=== PATIENT | female | born 1940 | race Caucasian/White ===

== ENCOUNTER 2017-05-07 09:15 | Inpatient (IN) ==
--- NOTE | 2017-05-06 21:53 | Discharge Summary ---
<Miracle Manjarrez - Last Filed: 05/06/17 21:51> Date of Encounter: 05/06/17 - Discharge Diagnosis (1) Left rotator cuff tear arthropathy Priority: Primary Status: Acute (2) Status post total replacement of left shoulder Priority: Primary Status: Acute (3) CHRIS on CPAP Priority: Secondary Status: Chronic (4) HTN (hypertension) Priority: Secondary Status: Chronic Qualifiers: Hypertension type: essential hypertension Qualified Code(s): I10 - Essential (primary) hypertension (5) HLD (hyperlipidemia) Priority: Secondary Status: Chronic Qualifiers: Hyperlipidemia type: pure hypercholesterolemia Qualified Code(s): E78.00 - Pure hypercholesterolemia, unspecified; E78.0 - Pure hypercholesterolemia - Discharge Medications Home Medications: Aspirin [Lo-Dose Aspirin EC] 81 mg PO DAILY 05/07/17 [History] Atenolol [Tenormin] 25 mg PO DAILY 05/07/17 [History] Atorvastatin Calcium [Lipitor] 80 mg PO DAILY 05/07/17 [History] Calcium Acetate 1,000 mg PO DAILY 05/07/17 [History] Cholecalciferol (D-3) [Vitamin D] 1,000 unit PO DAILY 05/07/17 [History] Lisinopril [Zestril] 40 mg PO DAILY 05/07/17 [History] Multivitamin [Multi-Day Vitamins] 1 each PO DAILY 05/07/17 [History] Gheens-3 Fatty Acids [Fish Oil] 1,000 mg PO DAILY 05/07/17 [History] Allergies/Adverse Reactions: Allergies iodine Allergy (Severe, Verified 05/03/17 09:25) Hives topical iodine Primary care physician: Modesto Cabrera MD - Patient Status Disposition: Home Health Service Condition: Good - Discharge Instructions Follow Up With: Modesto Cabrera MD [Primary Care Provider] - - Hospital Course Hospital course: Ms. Bassett is a 76 year old female - Time Spent with Patient Total time spent providing and/or coordinating discharge services: <Dion Campbell - Last Filed: 05/08/17 06:55> Date of Encounter: 05/08/17 Time of Encounter: 06:53 - Discharge Diagnosis (1) CLL (chronic lymphocytic leukemia) Priority: Secondary Status: Chronic (2) Left rotator cuff tear arthropathy Priority: Primary Status: Chronic (3) CHRIS on CPAP Priority: Secondary Status: Chronic (4) HTN (hypertension) Priority: Secondary Status: Chronic Qualifiers: Hypertension type: essential hypertension Qualified Code(s): I10 - Essential (primary) hypertension (5) HLD (hyperlipidemia) Priority: Secondary Status: Chronic Qualifiers: Hyperlipidemia type: pure hypercholesterolemia Qualified Code(s): E78.00 - Pure hypercholesterolemia, unspecified; E78.0 - Pure hypercholesterolemia (6) Status post total replacement of left shoulder Priority: Primary Status: Acute (7) Lipoma of left shoulder Priority: Primary Status: Chronic Primary care physician: Modesto Cabrera MD - Patient Status Functional capacity at discharge: independent ambulation Overall status at discharge: patient is progressing back to baseline - Hospital Course Hospital course: Ms. Bassett is a 76 year old female Status post left shoulder lipoma excision, total shoulder replacement. The patient had an uneventful postoperative course. They received antibiotics and physical therapy and were discharged in stable condition. There will follow -up in the office in 2 weeks. - Time Spent with Patient Total time spent providing and/or coordinating discharge services:
--- NOTE | 2017-05-06 22:12 | Physician Discharge Referral ---
Home Health/Hosp Referral Info Transfer to: Home Health Provider in Charge Post Discharge: PCP - Diagnosis (1) Left rotator cuff tear arthropathy Priority: Primary Status: Acute (2) Status post total replacement of left shoulder Priority: Primary Status: Acute (3) CHRIS on CPAP Priority: Secondary Status: Chronic (4) HTN (hypertension) Priority: Secondary Status: Chronic (5) HLD (hyperlipidemia) Priority: Secondary Status: Chronic - Respiratory Orders None Smoking Cessation: Smoking cessation has been advised. For more information, call the [place] Tobacco Quit Line at 4-402-COOZ-NOW. - Dressing/Wound Care Type of Dressing/Treatments w/Frequency: Opsite dressing, leave intact until first post-operative visit. If dressing becomes >50% saturated, contact office, remove dressing and place appropriate dressing in its place. Do not allow for dressing to get wet. Shoulder Precautions x 6 weeks. Apply cold therapy wrap 3-6x/day for 20 minutes at a time. Encourage ambulation throughout the day. Use Incentive spirometer 10x/hour. Elevate affected extremity above heart as tolerated. NWB to affected upper extremity x 6 weeks. Will remove brace at first post-operative appointment. OK to remove during PT/ OT and Home exercises. - Diet/Nutrition Diet/Nutrition Orders: Regular - Activity Activity Orders: Up ad triston, Ambulate - Services Needed Following services are medically necessary services: Nursing, Physical Therapy, Occupational Therapy - Transfer Medications Prescriptions: OxyCODONE Immed Rel [Roxicodone 5 MG] 5 - 10 mg PO Q6HR PRN #40 tablet PRN Reason: Pain Home Medications: Atenolol [Tenormin] 25 mg PO DAILY 06/03/15 [History] Lisinopril [Zestril] 40 mg PO DAILY 06/03/15 [History] Atorvastatin Calcium [Lipitor] 80 mg PO DAILY 12/03/15 [History] Aspirin [Lo-Dose Aspirin EC] 81 mg PO DAILY 12/01/16 [History] OxyCODONE Immed Rel [Roxicodone 5 MG] 5 - 10 mg PO Q6HR PRN #40 tablet 05/06/17 [Rx] Allergies/Adverse Reactions: Allergies iodine Allergy (Severe, Verified 05/03/17 09:25) Hives topical iodine Certification: Further, I certify that my clinical findings support that this patient is homebound (i.e. absences from home require considerable and taxing effort and are for medical reasons or shinto services or infrequently or short duration when for other reasons) because: Homebound Reason: Post-surgery restriction and or conditions limit ability to leave home Attestation: My signature below is to certify that this patient is under my care and that I, or nurse practitioner, or a physician's assistant kitchen manager working with me, has a face-to -face encounter with this patient.
[2017-05-07] MEDS ORDERED: Famotidine 20 MG/2 ML VIAL IVP ONE (09:33)
[2017-05-07] MEDS ORDERED: Gabapentin 300 MG CAPSULE PO ONE (09:34)
[2017-05-07] MEDS ORDERED: Ringers Solution, Lactated 1,000 ML IVC SCH ×2 (09:45→13:49)
--- NOTE | 2017-05-07 09:46 | History & Physical Report ---
Date of Encounter: 05/07/17 Time of Encounter: 09:45 24 Hour HP Update - Instructions Instructions: If the History and Physical is less than 30 days old and was completed prior to A.M. admission and or procedure and has NOT been updated on calendar day of procedure please complete this update prior to performing procedure. - Update Patient reports changes in Medical Condition: No Changes in examination, assessment, or condition: No Changes in Medication: No Preop tests/diagnostics Reviewed: Yes Surgery Remains Indicated: Yes Consent for Planned Operative Procedure(s) Verified: Yes - Pre-Operative Checklist Preoperative Checklist Indicated: No Prophylactic Antibiotic Ordered: Yes Is VTE Prophylaxis Indicated?: Yes
--- NOTE | 2017-05-07 10:04 | Anesthesia Evaluation PreOp ---
Date of Encounter: 05/07/17 Time of Encounter: 10:00 - Past History Planned Operation: Left Total Replacement Shoulder Cardiac History: HTN, Hyperlipidemia Pulmonary History: CHRIS Dx (Uses CPAP) HAT FINISHER History: Denies Any Significant HX Other Medical History: Denies Any Significant HX Anesthesia History: No Prior Anesthetic Complications : No Alcohol Use: none Drug use: none Medications and Allergies Atenolol [Tenormin] 25 mg PO DAILY 06/03/15 [History] Lisinopril [Zestril] 40 mg PO DAILY 06/03/15 [History] Atorvastatin Calcium [Lipitor] 80 mg PO DAILY 12/03/15 [History] Aspirin [Lo-Dose Aspirin EC] 81 mg PO DAILY 12/01/16 [History] OxyCODONE Immed Rel [Roxicodone 5 MG] 5 - 10 mg PO Q6HR PRN #40 tablet 05/06/17 [Rx] Allergies iodine Allergy (Severe, Verified 05/03/17 09:25) Hives topical iodine - Meds/Allergy Pre-op Review Medications Reviewed: Yes Allergies Reviewed: Yes Beta Blockers on Current Med List: No Anesthesia Results - Labs Laboratory Tests 05/03/17 05/03/17 09:40 09:40 Hgb 12.7 Hct 37.7 Plt Count 216 Sodium 136 Potassium 4.2 BUN 25 H Creatinine 0.81 - Imaging EKG: report reviewed (SB) Additional studies: ECHO 2017 LVEF 60% Anesthesia Exam O2 Sat Height 1.45 m Height 1.45 m Weight 60.781 kg Weight 60.781 kg O2 Sat by Pulse Oximetry 95 Vital Signs Temp Pulse Resp BP Pulse Ox 99.1 F 50 18 117/67 95 05/07/17 09:38 05/07/17 09:38 05/07/17 09:38 05/07/17 09:38 05/07/17 09:38 Height: 4'9 Weight: 134 lbs NPO (# of Hours): MN Pain Scale: 0 - HEENT Pupil (Motor): Pupils equal, EOMI Mallampati: III Teeth: Edentulous Denture Type: Upper: Complete Oral Opening: Less than or equal to 3 - HAT FINISHER LOC: Oriented HAT FINISHER Motor: Normal RUE, Normal LUE, Normal RLE, Normal LLE, Normal Face HAT FINISHER Sensory: Normal: RUE, LUE, RLE, LLE, Face - Cardiac Rhythm: Regular Murmur: None JVD: No Carotid Bruit: No - Pulmonary Breath Sounds: bilateral Clear Respiratory Effort: Symmetrical Anesthesia Assess/Plan ASA Score: 3 (HTN CHRIS) Modified [place] Scale for Level of Consciousness: Cooperative, oriented, and tranquil Anesthetic Plan: General, Regional Monitoring Plan: Standard Monitors Recovery Plan: PACU (Discussed GA and RA, agrees to proceed)
[2017-05-07] MEDS ORDERED: CeFAZolin Pre 2,000 MG/100 ML 2,000 MG/100 ML BAG IVPB ONE (10:17)
[2017-05-07] MEDS ORDERED: Tetracaine/PF 20 MG/2 ML AMPUL ONE (10:48)
[2017-05-07] MEDS ORDERED: ROPIVACAINE HCL/PF 0.5% 30 ML VIAL ONE (10:48)
[2017-05-07] MEDS ORDERED: *HR* HYDROmorphone (PF) 1 MG/ML SYRINGE IVP PRN ×2 (11:04→13:49)
[2017-05-07] MEDS ORDERED: Ondansetron 4 MG/2 ML VIAL IVP ONE (11:04)
[2017-05-07] MEDS ORDERED: *HR* Labetalol 20 MG/4 ML SYRINGE IVP PRN (11:04)
--- NOTE | 2017-05-07 11:09 | Anesthesia Procedures ---
Date of Encounter: 05/07/17 Time of Encounter: 10:00 Procedures: Anesthesia - Nerve Block Procedure Date: 05/07/17 Time: 11:00 Pre-op Diagnosis: Left Shoulder OA Arthropathy Surgical Procedure: Left Total Shoulder Replacement Checklist: Correct Patient Identifier Correct side: Left Blood Thinner: No Monitor Applied: EKG, BP, Pulse Oximetry Supplemental Oxygen via Nasal Cannula (L/min): 2 Sedation: Fentanyl (mcg): 50 Indication: Post Op Analgesia Pre-op Neuro Deficits: No Block Type: Supraclavicular Catheter placed: No Depth at skin (cm): 2 Sterile Technique: Yes Ultrasound used: Yes Anatomy identified: Yes Visual spread of Local: Yes Neuro Stimulation: No Blood on Needle Aspiration: No Smooth Injection of Local: Yes Pain with Injection of Local: No Prep: Chlorhexadine Needle: 22 x 50 mm Stimuplex Local: Tetracaine (20), Ropivacaine (0.5%) Volume (cc): 30 Number of Attempts: 1 Complications: None/effective block Vitals: Vital Signs/O2 Sat/Glucose, Most Current Temp Pulse Resp BP Pulse Ox 05/07/17 11:02 47 14 152/72 94 05/07/17 10:50 46 16 150/78 97 05/07/17 09:38 99.1 F 50 18 117/67 95
[2017-05-07] MEDS ORDERED: Dexamethasone 4 MG/ML VIAL ONE (11:40)
[2017-05-07] MEDS ORDERED: Ondansetron 4 MG/2 ML VIAL ONE (11:40)
[2017-05-07] MEDS ORDERED: Lidocaine -MPF 4% 5 ML AMPUL ONE (11:40)
[2017-05-07] MEDS ORDERED: Lidocaine -MPF 2% 2 ML VIAL ONE (11:40)
[2017-05-07] MEDS ORDERED: *HR* FentaNYL (PF) 100 MCG/2 ML VIAL ONE (11:40)
[2017-05-07] MEDS ORDERED: *HR* Midazolam HCl 2 MG/2 ML VIAL ONE (11:40)
[2017-05-07] MEDS ORDERED: *HR* Propofol 200 MG/20 ML VIAL IVP ONE (11:40)
--- NOTE | 2017-05-07 12:28 | Orthopedic Operative Note ---
Date of procedure: 05/07/17 Pre-op diagnosis: Left shoulder lipoma, cuff tear arthropathy Post-op diagnosis: same Procedure: Procedure: Left Total Shoulder Replacment Reverse, lipoma excision, biceps tenodesis Estimated blood loss: 100 cc Hardware: Metal and polyethylene replacement: Arthrex small glenoid baseplate, 2 4.5 screws. 1 6.5 screw, 36+4 glenosphere, 5 humeral stem, poly insert 6 Exam Under anesthesia: Full motion of instability Procedural Notes: Large intramuscular lipoma sent off for specimen, irreparable tear supraspinatus tendon Operative procedure: The patient was brought to the operating room and placed on the operating room table. After general anesthesia was administered the operative shoulder was examined. Findings were noted. The patient was placed in the modified beachchair position. All pressure points were padded appropriately. And the head was stabilized in the neutral position. The operative extremity was prepped and draped in the sterile surgical fashion. The patient received IV antibiotics prior to skin incision. A standard deltopectoral approach was made to the operative shoulder. Incision was made to the skin and subcutaneous tissue,hemo stasis was obtained with Bovie cautery. Using careful blunt dissection the cephalic vein was identified and mobilized medially. The deltopectoral interval was developed patient had a large intramuscular lipoma which was excised using careful blunt dissection. The deltopectoral interval was then fully developed, clavipectoral fascia was incised. The subscap was released off the lesser tuberosity and tagged with #2 FiberWire suture subscap was irreparable. The humerus was dislocated patient noted to have irreparable tear supraspinatus tendon, and the humeral cut was made along the anatomic neck. Anterior and posterior Bankart retractors were placed to expose the glenoid. The glenoid guide was seated and the centering hole was made. It was reamed with the appropriate reamer. The small baseplate was seated and secured with (2) 4.5 screws and one 6.5 screw. The baseplate was irrigated and dried and the 6+4 Glenosphere was seated and secured with the Friedman taper. The Friedman taper was tested and found to be secure the humerus was redislocated and prepared with the diaphyseal reamers, followed by a broaching process up to the appropriate size 5 in the patient's anatomic version. The metaphyseal reamer was then utilized. Trial reduction found the shoulder to be relocatable. Trial components were removed and drill holes were placed in the lesser tuberosity. They were filled with #5 FiberWire suture incorporating the biceps tendon for a biceps tenodesis.The appropriate 5 stem was impacted in place in the patient's anatomic version. Trial reduction found the shoulder to be relocatable and stable with the appropriate 6 Trial component was removed and the real implant was seated and secured the shoulder was reduced. The shoulder had excellent motion and excellent stability and no evidence of dislocation. The deep tissue was irrigated with pulse irrigation. The PA close the shoulder The deltopectoral interval was closed with a running #1 PDS suture, subcutaneous tissue was irrigated and closed with 0 PDS suture, the skin was closed with myranda. The patient was placed in a sterile dressing, abduction brace and extubated. The patient was then transferred to the recovery room in stable condition. Anesthesia: CRISTINE Surgeon: Dion Campbell Stave Block Splitter: Ann Funes Condition: stable Disposition: PACU
[2017-05-07 13:08] LABS: Hematocrit 36.3 % (35.3-44.9); Hemoglobin 11.9 g/dL (11.5-15.4)
--- NOTE | 2017-05-07 13:28 | Anesthesia Evaluation Post Op ---
Date of Encounter: 05/07/17 Time of Encounter: 13:15 - Vital Signs Vital Signs: Vital Signs/O2 Sat/Glucose, Most Current Temp Pulse Resp BP Pulse Ox 05/07/17 13:15 97.8 F 59 16 154/83 96 05/07/17 13:05 58 16 158/88 95 05/07/17 12:55 57 16 152/85 94 05/07/17 12:50 59 18 165/78 94 05/07/17 12:45 97.2 F L 61 20 165/75 97 05/07/17 11:02 47 14 152/72 94 05/07/17 10:50 46 16 150/78 97 05/07/17 09:38 99.1 F 50 18 117/67 95 - Lungs Lungs: Clear Ascult./Percussion - Airway Airway: Non-obstructed - Cardiovascular Regular Rate - Mental Status Mental Status: Alert & Oriented, Answers Appropriately - Pain Pain Scale: 0 - Nausea Vomiting Nausea Vomiting: Not Present - Hydration Hydration: Ice chips - Discharge PostOp Status: Transfer Patient to floor
[2017-05-07] MEDS ORDERED: Sennosides 8.6 MG TABLET PO PRN (13:49)
[2017-05-07] MEDS ORDERED: MOM Conc 10 ML UD.LIQ PO PRN (13:49)
[2017-05-07] MEDS ORDERED: *HR* OxyCODONE Immed Rel 5 MG TABLET PO PRN ×2 (13:49)
[2017-05-07] MEDS ORDERED: Ondansetron 4 MG/2 ML VIAL IVP PRN (13:49)
[2017-05-07] MEDS ORDERED: Naloxone 0.4 MG/ML INJ IVP PRN (13:49)
[2017-05-07] MEDS: ceFAZolin 2,000 MG in D5% in Water 100 ML IVPB SCH ×2 (16:05→23:45)
[2017-05-07] MEDS: *HR* Enoxaparin 30 MG/0.3 ML SYRINGE SQ SCH (16:06)
[2017-05-07] MEDS ORDERED: *HR* Enoxaparin 30 MG/0.3 ML SYRINGE SQ SCH (18:00)
[2017-05-07] MEDS ORDERED: Temazepam 15 MG CAPSULE PO PRN (21:00)
[2017-05-08] MEDS: *HR* Enoxaparin 30 MG/0.3 ML SYRINGE SQ SCH (05:05)
[2017-05-08 05:27] LABS: Hematocrit 37.9 % (35.3-44.9); Hemoglobin 12.2 g/dL (11.5-15.4)
--- NOTE | 2017-05-08 06:55 | Orthopedics Progress Note ---
Date of Encounter: 05/08/17 Time of Encounter: 06:55 - Assessment and Plan (1) CLL (chronic lymphocytic leukemia) Current Visit: No Status: Chronic (2) Left rotator cuff tear arthropathy Current Visit: Yes Status: Chronic (3) CHRIS on CPAP Current Visit: Yes Status: Chronic (4) HTN (hypertension) Current Visit: Yes Status: Chronic Qualifiers: Hypertension type: essential hypertension Qualified Code(s): I10 - Essential (primary) hypertension (5) HLD (hyperlipidemia) Current Visit: Yes Status: Chronic Qualifiers: Hyperlipidemia type: pure hypercholesterolemia Qualified Code(s): E78.00 - Pure hypercholesterolemia, unspecified; E78.0 - Pure hypercholesterolemia (6) Status post total replacement of left shoulder Current Visit: Yes Status: Acute (7) Lipoma of left shoulder Current Visit: Yes Status: Chronic Subjective Interval history: Patient was seen this morning doing well without complaints. Afebrile vital signs stable. Operative extremity: Neurovascularly intact Dressing clean dry and intact Calves nontender Assessment and plan: Continue with postoperative care Hematocrit 37 discharged today Objective Vital signs: Vital Signs Temp Pulse Resp BP Pulse Ox 05/08/17 04:26 98.3 F 55 18 142/70 95 05/08/17 00:18 97.0 F L 51 17 158/79 99 05/07/17 20:31 97.7 F 54 16 126/65 93 05/07/17 17:25 97.5 F L 05/07/17 16:00 97.4 F L 51 15 167/72 97 05/07/17 14:37 95.9 F L 48 14 164/72 94 05/07/17 13:57 95.5 F L 50 12 168/83 92 05/07/17 13:24 94.4 F L 51 14 166/80 93 05/07/17 13:15 97.8 F 59 16 154/83 96 05/07/17 13:05 58 16 158/88 95 05/07/17 12:55 57 16 152/85 94 05/07/17 12:50 59 18 165/78 94 05/07/17 12:45 97.2 F L 61 20 165/75 97 05/07/17 11:02 47 14 152/72 94 05/07/17 10:50 46 16 150/78 97 05/07/17 09:38 99.1 F 50 18 117/67 95 Intake and Output 05/07/17 05/07/17 05/08/17 15:59 23:59 07:59 Intake Total 100 / 100 1500 / 1500 1060 / 1060 Output Total 220 / 220 875 / 875 500 / 500 Balance -120 / -120 625 / 625 560 / 560 Intake: IV Fluids 100 / 100 100 / 100 100 / 100 Ancef Premix 2,000 MG/100 100 / 100 ML 2,000 mg In 100 ml @ 200 mls/hr IVPB PREOP ONE Rx#:[id number] Ancef 2,000 MG In 100 / 100 100 / 100 Dextrose 5% 100 ML @ 200 mls/hr IVPB Q8HR EDOUARD Rx#: [id number] Oral 1400 / 1400 960 / 960 Output: Urine 120 / 120 875 / 875 500 / 500 Estimated Blood Loss 100 / 100 Other: # Voids 1 1 Weight 60.781 kg 65.771 kg Patient Weight 05/08/17 23:59 Weight 65.771 kg - Labs CBC & BMP: 05/08/17 04:38 - VTE Documentation of Mechanical Device: Venous foot pump, device Consult Discharge Plan - Plan Referrals: Modesto Cabrera MD [Primary Care Provider] -
[2017-05-08 11:48] VITALS: BP 145/71
--- NOTE | 2017-05-08 11:54 | Event Note ---
Date of Encounter: 05/08/17 Time of Encounter: 12:36 PCR - POD#1 - LEFT TSR-r Patient seen at bedside. C/o Nausea - Zofran given. Pain control: adequate on Oxycodone Participating in PT. All questions and concerns addressed Educated on use of incentive spirometer, ambulation, and hydration. DID not bring in CPAP, was on Oxygen last night. Patient educated on post-operative restrictions and care. Addressed: Pain control with pain medication D/C plan:. Home with home health 05/08/17; RX for Zofran given. Informed to place start back on CPAP tonight at home. CXR yesterday - atelectasis, no infiltrate noted.
[2017-05-08] MEDS ORDERED: Ondansetron ODT 4 MG TAB.RAPDIS SL ONE (12:41)
== END 2017-05-08 13:40 | disposition home health service (06) | DRG 483 ==
LOC: SAMDAY 09:15 → 3NENU 13:40
PROVIDERS: ADMIT Orthopaedic Surgery; ATTEND Orthopaedic Surgery

== ENCOUNTER 2017-07-24 10:37 | Observation (INO) ==
--- NOTE | 2017-07-24 10:58 | Emergency Department Note ---
START Narrative - START START: 76-year-old female is brought by EMS for evaluation of nausea, vomiting, and dizziness. The patient states the dizziness began 2 weeks ago however became much more severe this morning. She describes one episode of emesis. 4 mg of IV Zofran was administered by EMS. She also complains of substernal chest pressure that began 2 weeks ago as well. She complains of mild epigastric pain but denies any fever, chills, hematochezia, or melena. She denies any shortness of breath, pain with inspiration, or hemoptysis.
[2017-07-24 11:05] LABS: Basophils % 0.4 %; Eosinophils # 0.2 K/mcL (0.0-0.6); Eosinophils % 2.6 %; Hematocrit 39.1 % (35.3-44.9); Hemoglobin 12.9 g/dL (11.5-15.4); Immature Granulocytes % 0.3 % (0-4); Lymphocytes # 3.3 K/mcL (0.6-4.6); Lymphocytes % 36.4 %; Mean Corpuscular Hemoglobin 31.8 pg (28.0-33.3); Mean Corpuscular Volume 96.3 fL (83.0-100.0); Mean Platelet Volume 9.6 fL (9.4-12.4); Monocytes # 0.8 K/mcL (0.0-1.3); Monocytes % 8.3 %; Neutrophils # 4.7 K/mcL (1.6-8.9); Platelet Count 227 K/mcL (140-400); Red Blood Count 4.06 M/mcL (3.82-4.97); Red Cell Distribution Width 12.6 % (11.5-14.5)
[2017-07-24 11:09] LABS: INR 1.1; Prothrombin Time 11.4 Seconds (9.4-12.1)
[2017-07-24 11:12] LABS: Activated Partial Thrombo Time 30.8 Seconds (26.0-36.0)
[2017-07-24 11:20] LABS: Alanine Aminotransferase 26 Units/L (0-55); Albumin 3.8 g/dL (3.5-5.0); Albumin/Globulin Ratio 1.3 (1.1-2.2); Alkaline Phosphatase 85 Units/L (38-126); Aspartate Amino Transferase 23 Units/L (5-34); BUN/Creatinine Ratio 32 (6-26); Bilirubin,Total 0.6 mg/dL (0.2-1.2); Blood Urea Nitrogen 24 mg/dL (7-20); Calcium 9.1 mg/dL (8.6-10.8); Carbon Dioxide 25 mEq/L (19-29); Chloride 106 mEq/L (98-109); Globulin 2.9 g/dL (2.4-3.5); Glucose 100 mg/dL (70-99); Lipase 44 Units/L (8-78); Osmolality,Calculated 290 (280-300); Potassium 4.2 mEq/L (3.5-4.5); Sodium 138 mEq/L (136-145); Total Protein 6.7 g/dL (6.0-8.3); eGFR For African Americans > 60 (> 60); eGFR For Non-African Americans > 60 (> 60)
--- NOTE | 2017-07-24 11:22 | Emergency Department Note ---
Disposition Clinical Impression: Vertigo, Bradycardia Hypertension Qualifiers: Hypertension type: unspecified Qualified Code(s): I10 - Essential (primary) hypertension Disposition: Admitted As Inpatient Condition: Fair Referrals: Modesto Cabrera MD [Primary Care Provider] - Forms: ED Satisfaction Letter Time of Disposition: 12:29 Dizziness HPI - General Chief Complaint: ED Dizziness Stated Complaint: dizziness/n/v Time Seen by Provider: 07/24/17 10:43 Source: patient, family, EMS Limitations: no limitations Nursing Notes Reviewed: Yes Vital Signs Reviewed: Yes - History of Present Illness HPI Narrative: Symptoms started 2 weeks ago. She notes intermittent dizziness described as if the "room is spinning." Her symptoms are positional especially when she stands up or when she bends forward to tie her shoes. She feels nauseated in association with these events. She denies focal weakness. Pt Subjective Complaint: dizziness Onset (ago): week(s) Timing: sudden onset, intermittent Description: "room spinning" History of similar episodes: No History of trauma: No Improves with: remaining still Worsens with: movement, position - Related Data Home Medications Medication Instructions Recorded Confirmed Aspirin [Lo-Dose Aspirin EC] 81 mg PO DAILY 05/07/17 05/07/17 Atenolol [Tenormin] 25 mg PO DAILY 05/07/17 05/07/17 Atorvastatin Calcium [Lipitor] 80 mg PO DAILY 05/07/17 05/07/17 Calcium Acetate 1,000 mg PO DAILY 05/07/17 05/07/17 Cholecalciferol (D-3) [Vitamin D] 1,000 unit PO DAILY 05/07/17 05/07/17 Lisinopril [Zestril] 40 mg PO DAILY 05/07/17 05/07/17 Multivitamin [Multi-Day Vitamins] 1 each PO DAILY 05/07/17 05/07/17 [place]-3 Fatty Acids [Fish Oil] 1,000 mg PO DAILY 05/07/17 05/07/17 Allergies Allergy/AdvReac Type Severity Reaction Status Date / Time iodine Allergy Severe Hives Verified 05/03/17 09:25 All systems ED: reviewed and negative except as stated. Constitutional: Reports: as per HPI Eyes: Reports: as per HPI ENT ED: Reports: as per HPI Cardiovascular: Reports: chest pain Respiratory: Reports: as per HPI Gastrointestinal: Reports: abdominal pain, nausea Genitourinary: Reports: as per HPI Musculoskeletal: Reports: as per HPI Integumentary: Reports: as per HPI Neurological: Reports: other (Dizziness) Psychiatric: Reports: as per HPI Endocrine: Reports: as per HPI Hematological/Lymphatic: Reports: as per HPI Allergic/Immunologic: Reports: as per HPI Past Medical History - Past Medical History Source: patient Medical history: Reports: arthritis, hypertension, other (hypertension) Surgical history: Reports: cataract, hysterectomy, orthopedic, other Psychiatric history: Reports: no psych history - Social History Smoking Status: Never smoker Smokeless Tobacco Status: No Alcohol use: Reports: none Drug use: Reports: none Physical Exam - General Limitations: no limitations General appearance: alert - Head Head exam: atraumatic - Eye Eye exam: Present: normal appearance, PERRL - ENT ENT exam: normal exam - Neck Neck exam: Present: normal inspection, full ROM - Chest Chest inspection: Present: normal inspection, symmetric chest wall rise - Respiratory Respiratory exam: Present: normal lung sounds bilaterally - Cardiovascular Cardiovascular exam: Present: bradycardia - Abdominal Exam Abdominal exam: Present: soft, Non-Tender - Rectal Exam Rectal exam: Present: deferred - Extremities Exam Extremities exam: Present: normal inspection - Neurological Exam Neurological exam: Present: alert, oriented X3, CN II-XII intact - Psychiatric Psychiatric exam: Present: normal affect, normal mood - Skin Skin exam: Present: warm, dry, intact Course Course Narrative: Patient presents with intermittent symptoms of dizziness and nausea. Her history is most consistent with vertigo. She has a normal neurologic exam - Reevaluation(s) Reevaluation #1: Able to ambulate with limited assistance. She states she still feels weak, somewhat dizzy and nauseated. I provided her with the option to be admitted if she wants to discuss it with her significant other and think about it Reevaluation #2: Patient requests admission Vital Signs Temperature 98.6 F 07/24/17 10:39 Pulse Rate 57 07/24/17 10:39 Respiratory Rate 18 07/24/17 10:39 Blood Pressure 174/80 07/24/17 10:39 O2 Sat by Pulse Oximetry 96 07/24/17 10:39 Temperature 98.6 F 07/24/17 10:39 Pulse Rate 47 07/24/17 12:15 Respiratory Rate 18 07/24/17 12:15 Blood Pressure 180/130 07/24/17 12:15 O2 Sat by Pulse Oximetry 97 07/24/17 12:15 Oxygen Delivery Oxygen Delivery Room Air Dizziness - Lab Data Lab results reviewed: Yes I reviewed the patient's lab results. Result diagrams: 07/24/17 10:56 07/24/17 10:56 Lab Results 07/24/17 07/24/17 07/24/17 Range/Units 10:56 10:56 10:56 WBC 9.1 (4.3-11.1) K/mcL RBC 4.06 (3.82-4.97) M/mcL Hgb 12.9 (11.5-15.4) g/dL Hct 39.1 (35.3-44.9) % MCV 96.3 (83.0-100.0) fL MCH 31.8 (28.0-33.3) pg MCHC 33.0 (31.6-35.5) g/dL RDW 12.6 (11.5-14.5) % Plt Count 227 (140-400) K/mcL MPV 9.6 (9.4-12.4) fL Immature Gran % 0.3 (0-4) % Seg Neutrophils % 52.0 % Lymphocytes % 36.4 % Monocytes % 8.3 % Eosinophils % 2.6 % Basophils % 0.4 % Neutrophils # 4.7 (1.6-8.9) K/mcL Lymphocytes # 3.3 (0.6-4.6) K/mcL Monocytes # 0.8 (0.0-1.3) K/mcL Eosinophils # 0.2 (0.0-0.6) K/mcL Basophils # 0.0 (0.0-0.2) K/mcL PT 11.4 (9.4-12.1) Seconds INR 1.1 APTT 30.8 (26.0-36.0) Seconds Sodium 138 (136-145) mEq/L Potassium 4.2 (3.5-4.5) mEq/L Chloride 106 (98-109) mEq/L Carbon Dioxide 25 (19-29) mEq/L BUN 24 H (7-20) mg/dL Creatinine 0.74 (0.57-1.11) mg/dL Est GFR ( Amer) > 60 (> 60) Est GFR (Non-Af Amer) > 60 (> 60) BUN/Creatinine Ratio 32 H (6-26) Glucose 100 H (70-99) mg/dL Calculated Osmolality 290 (280-300) Lactic Acid (0.5-2.2) mmol/L Calcium 9.1 (8.6-10.8) mg/dL Magnesium 2.0 (1.6-2.6) mg/dL Total Bilirubin 0.6 (0.2-1.2) mg/dL AST 23 (5-34) Units/L ALT 26 (0-55) Units/L Alkaline Phosphatase 85 (38-126) Units/L Troponin I (0-0.03) ng/mL Serum Total Protein 6.7 (6.0-8.3) g/dL Albumin 3.8 (3.5-5.0) g/dL Globulin 2.9 (2.4-3.5) g/dL Albumin/Globulin Ratio 1.3 (1.1-2.2) Lipase 44 (8-78) Units/L Urine Color (Yellow) Urine Clarity (Clear) Urine pH (5.0-8.0) pH Units Ur Specific Aline (1.010-1.025) Urine Protein (Neg-Trace) mg/dL Urine Glucose (UA) (Normal) mg/dL Urine Ketones (Negative) mg/dL Urine Blood (Negative) Urine Nitrite (Negative) Urine Bilirubin (Negative) Urine Urobilinogen (Normal) mg/dL Ur Leukocyte Esterase (Negative) Ur Culture Indicated? (NO) 07/24/17 07/24/17 07/24/17 Range/Units 10:56 10:56 11:17 WBC (4.3-11.1) K/mcL RBC (3.82-4.97) M/mcL Hgb (11.5-15.4) g/dL Hct (35.3-44.9) % MCV (83.0-100.0) fL MCH (28.0-33.3) pg MCHC (31.6-35.5) g/dL RDW (11.5-14.5) % Plt Count (140-400) K/mcL MPV (9.4-12.4) fL Immature Gran % (0-4) % Seg Neutrophils % % Lymphocytes % % Monocytes % % Eosinophils % % Basophils % % Neutrophils # (1.6-8.9) K/mcL Lymphocytes # (0.6-4.6) K/mcL Monocytes # (0.0-1.3) K/mcL Eosinophils # (0.0-0.6) K/mcL Basophils # (0.0-0.2) K/mcL PT (9.4-12.1) Seconds INR APTT (26.0-36.0) Seconds Sodium (136-145) mEq/L Potassium (3.5-4.5) mEq/L Chloride (98-109) mEq/L Carbon Dioxide (19-29) mEq/L BUN (7-20) mg/dL Creatinine (0.57-1.11) mg/dL Est GFR ( Amer) (> 60) Est GFR (Non-Af Amer) (> 60) BUN/Creatinine Ratio (6-26) Glucose (70-99) mg/dL Calculated Osmolality (280-300) Lactic Acid 1.1 (0.5-2.2) mmol/L Calcium (8.6-10.8) mg/dL Magnesium (1.6-2.6) mg/dL Total Bilirubin (0.2-1.2) mg/dL AST (5-34) Units/L ALT (0-55) Units/L Alkaline Phosphatase (38-126) Units/L Troponin I 0.01 (0-0.03) ng/mL Serum Total Protein (6.0-8.3) g/dL Albumin (3.5-5.0) g/dL Globulin (2.4-3.5) g/dL Albumin/Globulin Ratio (1.1-2.2) Lipase (8-78) Units/L Urine Color Yellow (Yellow) Urine Clarity Clear (Clear) Urine pH 7.5 (5.0-8.0) pH Units Ur Specific Aline 1.013 (1.010-1.025) Urine Protein Negative (Neg-Trace) mg/dL Urine Glucose (UA) Normal (Normal) mg/dL Urine Ketones Negative (Negative) mg/dL Urine Blood Negative (Negative) Urine Nitrite Negative (Negative) Urine Bilirubin Negative (Negative) Urine Urobilinogen Normal (Normal) mg/dL Ur Leukocyte Esterase Negative (Negative) Ur Culture Indicated? NO (NO) - Radiology Data Radiology results reviewed: Yes I reviewed the patient's radiology results. - EKG Data EKG attestation: Yes I reviewed and interpreted this EKG. EKG results narrative: Sinus bradycardia rate 50 VA interval 173 QRS 101 QT/QTc 468/443
[2017-07-24 11:38] LABS: Bilirubin,Urine Negative (Negative); Blood,Urine Negative (Negative); Clarity,Urine Clear (Clear); Color,Urine Yellow (Yellow); Glucose,Urine (UA) Normal (Normal); Ketones,Urine Negative (Negative); Leukocyte Esterase,Urine Negative (Negative); Nitrite,Urine Negative (Negative); PH,Urine 7.5 pH Units (5.0-8.0); Protein,Urine Negative (Neg-Trace); Specific Gravity,Urine 1.013 (1.010-1.025); Urobilinogen,Urine Normal (Normal)
[2017-07-24] MEDS ORDERED: Naloxone 0.4 MG/ML INJ IVP PRN (14:20)
[2017-07-24] MEDS ORDERED: Acetaminophen 325 MG TABLET PO PRN (14:20)
[2017-07-24] MEDS ORDERED: *HR* HYDROcodone/Acet 5/325 mg TABLET PO PRN (14:20)
[2017-07-24] MEDS ORDERED: Ondansetron 4 MG/2 ML VIAL IVP PRN (14:20)
--- NOTE | 2017-07-24 15:36 | Internal Med History&Physical ---
<Roni Garcia - Last Filed: 07/24/17 19:27> Date of Encounter: 07/24/17 Time of Encounter: 14:00 Assessment and Plan (1) Bradycardia Current visit: Yes Status: Acute Acute bradycardia on admission. Patient states this has been occurring intermittently over the past several months but has worsened over the past 24 hours. Will hold patient's Norvasc and atenolol for now. Patient placed on continuous cardiac telemetry. Will consider atropine if bradycardia continues or worsens. (2) Chest pressure Current visit: Yes Status: Acute Patient reports intermittent chest pressure over the past several weeks that is non-radiating and sometimes coincides with episodes of dizziness. Patient denies hx of AK. Echocardiogram in April prior to shoulder surgery shows LVEF of 60-65%. Gated LVEF on stress test was 70% and test was negative for ischemia or infarct. Patient was placed on Norvasc 5 mg after becoming hypertensive during testing. Initial troponin 0.01. Will trend x2. Patient placed on continuous cardiac telemetry. (3) Vertigo Current visit: Yes Status: Acute Patient reports severe dizziness with positional changes like the room is spinning. She states that this has been occurring for the past several weeks with increasing intensity. Reports some nausea with episodes. Meclizine 25 mg administered in ED. Orthostatic BPs and VS ordered. Bilateral carotid Doppler duplex imaging ordered. Will continue meclizine 12.5 TID PO. Falls/safety precautions ordered. Patient states she was placed on Norvasc 5 mg in April for shoulder surgery preparation. Will hold Norvasc for now. (4) HTN (hypertension) Current visit: Yes Status: Chronic Hx of chronic HTN. Patient reports being placed on a third HTN medication prior to shoulder surgery in April (Norvasc 5 mg). Patient states her symptoms began post-medication changes. Monitor patient and VS. Continue patient's lisinopril and atenolol. Will hold Norvasc for now and monitor patient's BP and orthostatic symptoms. Qualifiers: Hypertension type: essential hypertension Qualified Code(s): I10 - Essential (primary) hypertension (5) HLD (hyperlipidemia) Current visit: Yes Status: Chronic Hx of chronic HLD. Lipid panel ordered in a.m. labs. Continue patient's Lipitor. Qualifiers: Hyperlipidemia type: pure hypercholesterolemia Qualified Code(s): E78.00 - Pure hypercholesterolemia, unspecified; E78.0 - Pure hypercholesterolemia (6) DVT prophylaxis Current visit: Yes Status: Acute Heparin 5,000 units SQ Q8 for DVT prophylaxis. Internal Medicine - H&P: HPI Chief complaint: Dizziness Admitted From: Emergency Dept Plans for Post Hospital Care: Home History of present illness: Ms. Bassett is a 76 year old female with medical history of arthritis, hypertension, and hyperlipidemia presents from the ED with chief complaint of dizziness with positional changes. She also reports intermittent chest pressure with and without the dizziness over the past several weeks. Patient states this has been occurring intermittently over the past few weeks but became worse yesterday with the feeling of the "room spinning". Patient denies hx of vertigo or similar symptoms prior to this. Ms. Bassett also reports that she had surgery on her left shoulder in April and Dr. Fletcher placed her on a third anti- hypertensive medication prior to surgery (Norvasc 5 mg). Patient reports she has never smoked and reports nausea, dizziness, and chest pressure but denies recent illness, fever, chills, vomiting, headache, vision changes, shortness of breath, palpitations, diarrhea, constipation, pre-syncope, or syncope. CT of the head today w/o contrast shows no acute intracranial abnormality and mild parenchymal atrophy and small vessel ischemic changes. One view CXR today shows no acute cardiopulmonary process. EKG today shows sinus bradycardia with borderline left axis deviation and minimal ST depression versus EKG dated which showed sinus rhythm with minimal voltage criteria for LVH and nonspecific ST and T-wave abnormality. Upon admission, patient's vital signs included temperature of 90 8.6F heart rate of 47 bpm, respiratory rate of 18, BP of 174/80, and SPO2 96% on room air. Abnormal labs today include BUN of 24 and glucose of 100. Patient's initial troponin 0.01. On examination, patient is bradycardic w/HR of 47 bpm. Lungs are clear bilaterally on auscultation. Patient has positive orthostatic BP changes with positional changes. Patient states she is vertiguous when standing. Patient is currently stable and reports no other acute distress. Ms. Bassett is at high risk for further morbidity and injury based on current symptoms and dizziness, history, and risk factors and will be placed as observation status. Time spent with Ms. Bassett >40 minutes. Past Med Surg Social Fam HX - Past Medical History Source: patient, old records reviewed Medical history: arthritis, hyperlipidemia, hypertension, other Psychiatric history: no psych history - Past Surgical History Surgical History: cataract (Bilateral), hysterectomy (Total), orthopedic, other (Left shoulder) - Social History Smoking Status: Never smoker Smokeless Tobacco Status: No Alcohol use: none Drug use: none Current living situation: Home Activity Level: Independent ambulation Recent Out of Country Travel Within the Last 8 Weeks: No Exposure or Possible Exposure to Illness During Travel: No - Family History Mother Adopted: No Race: Family Member Ethnicity: Non- Living Status: Age at : 72 Cause of : Lung cancer Hx Family Cardiac Disorders: Yes Hx Family Cancer: Yes (Sister and mother) Father Race: Family Member Ethnicity: Non- Living Status: Age at : 40 Cause of : Accident Brother Race: Family Member Ethnicity: Non- Living Status: Age at : 37 Cause of : AK Hx Family Cardiac Disorders: Yes (AK) Sister Race: Family Member Ethnicity: Non- Living Status: Age at : 68 Cause of : Leukemia Internal Medicine - H&P: Meds Aspirin [Lo-Dose Aspirin EC] 81 mg PO DAILY 05/07/17 [History] Atenolol [Tenormin] 25 mg PO DAILY 05/07/17 [History] Atorvastatin Calcium [Lipitor] 80 mg PO DAILY 05/07/17 [History] Calcium Acetate 1,000 mg PO DAILY 05/07/17 [History] Cholecalciferol (D-3) [Vitamin D] 1,000 unit PO DAILY 05/07/17 [History] Lisinopril [Zestril] 40 mg PO DAILY 05/07/17 [History] Multivitamin [Multi-Day Vitamins] 1 each PO DAILY 05/07/17 [History] [place]-3 Fatty Acids [Fish Oil] 1,000 mg PO DAILY 05/07/17 [History] amLODIPine [Norvasc] 5 mg PO DAILY 07/24/17 [History] 3 Allergy/AdvReac Type Severity Reaction Status Date / Time iodine Allergy Severe Hives Verified 05/03/17 09:25 All Systems PM: A 10-system review of systems was performed and is negative for pertinent findings except as documented above in the HPI. - Constitutional Constitutional: no chills, no fever(s), no night sweats - EENT Eyes: no change in vision, no discharge, no pain, no photophobia Ears: no ear discharge, no ear pain, no tinnitus Nose, mouth and throat: no dysphagia, no nasal discharge, no neck pain, no sore throat - Breasts Breasts: as per HPI - Cardiovascular Cardiovascular ROS IM: as per HPI, chest pain (Chest pressure that is intermittent and non-radiating), irregular heart rhythm (Bradycardia) - Respiratory Respiratory: no cough, no dyspnea, no wheezing, no excessive phlegm production - Gastrointestinal Gastrointestinal: no abdominal pain, no diarrhea, no hematemesis, no hematochezia, no melena, no nausea, no vomiting - Genitourinary Genitourinary: no change in urinary stream, no dysuria, no flank pain, no hematuria Menstruation: post hysterectomy - Musculoskeletal Musculoskeletal ROS IM: no numbness, no tingling - Integumentary Integumentary IM: no rash, no unusual bruising - Neurological Neurological ROS: as per HPI, disequilibrium, dizziness, vertigo - Psychiatric Psychiatric: as per HPI - Endocrine Endocrine IM: as per HPI - Hematologic/Lymphatic Hematologic/Lymphatic: no easy bruising - Allergic/Immunologic Allergic/Immunologic: as per HPI - Constitutional Vitals: Temp Pulse Resp BP Pulse Ox 97.9 F 49 16 149/70 96 07/24/17 14:29 07/24/17 14:29 07/24/17 14:29 07/24/17 14:29 07/24/17 14:29 General appearance: Present: cooperative, A&O X 3, pleasant, no acute distress, obese, answers questions appropriately - Head Head exam: Present: atraumatic, normocephalic - Eye Eye exam: Present: PERRL, conjuntiva pink, sclera anicteric Pupils: Present: PERRL - ENT ENT exam: Present: normal exam, normal external ear exam - Neck Neck exam general surgery: Present: normal inspection, supple, trachea midline. Absent: lymphadenopathy - Respiratory Respiratory exam: Present: CTAB. Absent: accessory muscle use, rales, rhonchi, wheezes - Cardiovascular Cardiovascular exam: Present: bradycardia - GI/Abdominal GI/Abdominal exam: Present: normal bowel sounds, soft, no peritoneal signs. Absent: distended, tenderness - Rectal Rectal exam: Present: deferred - Additional comments: exam deferred. - Extremities Exam Extremities exam: Present: warm, radial pulses palpable and symmetrical. Absent : calf tenderness, cyanotic, pedal edema - Back Exam Back exam: Present: normal inspection - Neurological Exam Neurological exam: Present: CN II-XII intact, oriented X3, no focal deficits. Absent: pronater drift, facial droop, speech deficit - Psychiatric Psychiatric exam: Present: normal affect, normal mood - Skin Skin exam: Present: dry, intact Internal Med - H&P Results - Labs CBC & Chem 7: 07/24/17 10:56 07/24/17 10:56 - EKG Data EKG shows normal: sinus rhythm Rate: bradycardia - EKG Data Prior EKG available for review: yes EKG comments: 07/24/17 15:58 EKG dated 05/09/17 shows sinus rhythm with minimal voltage criteria for LVH, consider normal variant. Nonspecific ST and T-wave abnormality. EKG dated 07/24/17 shows sinus bradycardia with borderline left axis deviation, minimal ST depression. - Diagnostic Studies Chest x-ray Additional comments: Impressions Chest X-Ray 07/24/17 10:44 IMPRESSION: No acute cardiopulmonary process. D/ : / 07/24/2017 11:28:29 Jared Moreira MD / [facility] Interpreting Provider: Jared Moreira MD CT scan - head Additional comments: Impressions Head CT 07/24/17 10:44 IMPRESSION: No acute intracranial abnormality. Mild parenchymal atrophy and chronic small vessel ischemic changes. D/ /24/2017 12:17:26 Joan Moreira MD / [facility] Interpreting Provider: Joan Moreira MD <Enoch Buchanan - Last Filed: 07/24/17 20:16> Date of Encounter: 07/24/17 Internal Medicine - H&P: HPI History of present illness: Ms. Bassett is a 76 year old female All Systems PM: A 10-system review of systems was performed and is negative for pertinent findings except as documented above in the HPI. - Constitutional Vitals: Temp Pulse Resp BP Pulse Ox 97.8 F 49 16 126/70 94 07/24/17 18:36 07/24/17 18:36 07/24/17 18:36 07/24/17 18:43 07/24/17 18:36 Internal Med - H&P Results - Labs CBC & Chem 7: 07/24/17 10:56 07/24/17 10:56 Labs: Cardiac Enzymes 07/24/17 Range/Units 16:41 Troponin I 0.01 (0-0.03) ng/mL - Attending Attestation I independently obtained history and examined this patient and my medical decision-making was reviewed with the nurse practitioner. I agree with the documented findings, disposition and treatment plan as described. My findings are summarized below: Patient presented to the hospital for evaluation of intractable dizziness associated with nausea and vomiting. On exam she is in no acute distress pupils are equal round reactive to light extraocular movements intact, there is no nystagmus. Heart is regular. Lungs are clear. Plan: IV fluids. Meclizine. Hold atenolol and amlodipine due to bradycardia and possibly contributing to her symptoms. If her symptoms do not improve with conservative treatment consider MRI of the brain.
[2017-07-24] MEDS ORDERED: 0.9 % Sodium Chloride 1,000 ML IVC SCH (20:15)
[2017-07-24] MEDS: *HR* Heparin 5,000 UNIT/ML VIAL SQ SCH (21:54)
[2017-07-25 04:44] LABS: Basophils % 0.3 %; Eosinophils # 0.4 K/mcL (0.0-0.6); Eosinophils % 3.9 %; Hematocrit 37.3 % (35.3-44.9); Hemoglobin 12.1 g/dL (11.5-15.4); Immature Granulocytes % 0.4 % (0-4); Lymphocytes # 3.9 K/mcL (0.6-4.6); Lymphocytes % 43.8 %; Mean Corpuscular HGB Conc 32.4 g/dL (31.6-35.5); Mean Corpuscular Hemoglobin 31.3 pg (28.0-33.3); Mean Corpuscular Volume 96.6 fL (83.0-100.0); Mean Platelet Volume 9.6 fL (9.4-12.4); Monocytes # 0.7 K/mcL (0.0-1.3); Monocytes % 7.8 %; Neutrophils # 3.9 K/mcL (1.6-8.9); Platelet Count 241 K/mcL (140-400); Red Blood Count 3.86 M/mcL (3.82-4.97); Red Cell Distribution Width 12.7 % (11.5-14.5); Segmented Neutrophils % 43.8 %
[2017-07-25 04:47] LABS: INR 1.1; Prothrombin Time 11.8 Seconds (9.4-12.1)
[2017-07-25 04:50] LABS: Activated Partial Thrombo Time 32.5 Seconds (26.0-36.0)
[2017-07-25 05:00] LABS: Alanine Aminotransferase 27 Units/L (0-55); Albumin 3.3 g/dL (3.5-5.0); Albumin/Globulin Ratio 1.5 (1.1-2.2); Alkaline Phosphatase 76 Units/L (38-126); Aspartate Amino Transferase 23 Units/L (5-34); BUN/Creatinine Ratio 27 (6-26); Bilirubin,Total 0.4 mg/dL (0.2-1.2); Blood Urea Nitrogen 21 mg/dL (7-20); Carbon Dioxide 27 mEq/L (19-29); Chloride 108 mEq/L (98-109); Chol/HDL Ratio 4.5 (0-4.9); Cholesterol 144 mg/dL (< 200); Globulin 2.2 g/dL (2.4-3.5); Glucose 98 mg/dL (70-99); HDL Cholesterol 32 mg/dL (40-59); LDL Cholesterol,Calculated 86 mg/dL (0-99); Magnesium 1.8 mg/dL (1.6-2.6); Osmolality,Calculated 293 (280-300); Potassium 3.8 mEq/L (3.5-4.5); Sodium 140 mEq/L (136-145); Total Protein 5.5 g/dL (6.0-8.3); Triglycerides 131 mg/dL (< 150); eGFR For African Americans > 60 (> 60); eGFR For Non-African Americans > 60 (> 60)
[2017-07-25] MEDS: *HR* Heparin 5,000 UNIT/ML VIAL SQ SCH ×3 (06:15→21:39)
[2017-07-25] MEDS: Multivit/Ca/Min/Fe/FA 1 TAB TABLET PO SCH (08:34)
[2017-07-25] MEDS: Aspirin Enteric Coated 81 MG Tablet PO SCH (08:34)
[2017-07-25] MEDS: Cholecalciferol (D-3) 1,000 UNIT TABLET PO SCH (08:34)
[2017-07-25] MEDS: CALCIUM ACETATE PO SCH (08:35)
[2017-07-25] MEDS: Lisinopril 20 MG TABLET PO SCH (08:36)
[2017-07-25] MEDS ORDERED: OMEGA PO SCH (09:00)
[2017-07-25] MEDS ORDERED: FATTY ACIDS PO SCH (09:00)
--- NOTE | 2017-07-25 12:34 | Carotid Imaging Report ---
Carotid Duplex Patient Name:Esthela Bassett Order Number:[id number] Procedure Date:07/24/2017 Date:1940ge:76 yrs Gender:Female Rt.BP:149 / 70 mmHgHeart Rate: Location:[facility] Room #: 16 Clearing Hand:Emily Solis, RDCS, RVT Referring MD:Roni Garcia, [employer] Reading MD:Davidson Castelan MD Primary Indications:Dizziness, pre-syncope Risk Factors Yes/No Hypertension Yes Hypercholesterolemia Yes Impressions: The bilateral carotid arteries have minimal plaque throughout. Findings Carotid Duplex: Right: The right proximal common carotid artery has a PSV of 67 cm/s and a EDV of 11 cm/s. The right mid common carotid artery has a PSV of 67 cm/s and a EDV of 12 cm/s. The right distal common carotid artery has a PSV of 61 cm/s and a EDV of 17 cm/s. The right bifurcation has a PSV of 88 cm/s and a EDV of 14 cm/s. The right proximal internal carotid artery has a PSV of 113 cm/s and a EDV of 27 cm/s. The right mid internal carotid artery has a PSV of 95 cm/s and a EDV of 22 cm/s. The right distal internal carotid artery has a PSV of 99 cm/s and a EDV of 17 cm/s. The right eca has a PSV of 78 cm/s and a EDV of 2 cm/s. The right vertebral artery has a PSV of 52 cm/s and a EDV of 13 cm/s. Left: The left proximal common carotid artery has a PSV of 91 cm/s and a EDV of 14 cm/s. The left mid common carotid artery has a PSV of 71 cm/s and a EDV of 10 cm/s. The left distal common carotid artery has a PSV of 61 cm/s and a EDV of 11 cm/s. The left bifurcation has a PSV of 52 cm/s and a EDV of 14 cm/s. The left proximal internal carotid artery has a PSV of 62 cm/s and a EDV of 14 cm/s. The left mid internal carotid artery has a PSV of 71 cm/s and a EDV of 17 cm/s. The left distal internal carotid artery has a PSV of 95 cm/s and a EDV of 21 cm/s. The left eca has a PSV of 91 cm/s and a EDV of 9 cm/s. The left vertebral artery has a PSV of 43 cm/s and a EDV of 10 cm/s. Prior Study: No prior study available for comparison. Carotid Results Right PSV EDV Assessment Proximal CCA 67 11 Mid CCA 67 12 Distal CCA 61 17 Bifurcation 88 14 Non Stenotic Plaque Proximal ICA 113 27 Mid ICA 95 22 Distal ICA 99 17 ECA 78 2 Vertebral Artery 52 13 Antegrade Flow Left PSV EDV Assessment Proximal CCA 91 14 Mid CCA 71 10 Distal CCA 61 11 Bifurcation 52 14 Non Stenotic Plaque Proximal ICA 62 14 Mid ICA 71 17 Distal ICA 95 21 ECA 91 9 Vertebral Artery 43 10 Antegrade Flow Ratio's Right ICA/CCA Ratio: 1.69 ICA/CCA Values: 113/67 Left ICA/CCA Ratio: 1.34 ICA/CCA Values: 95/71 Updated by Davidson Castelan MD on 07/25/2017 12:27:44 PM electronically signed on 07/25/2017 12:28:03 PM with status of Final
--- NOTE | 2017-07-25 14:21 | Cardiology Consult Note ---
<Yenni Reddy - Last Filed: 07/25/17 14:19> Date of Encounter: 07/25/17 Time of Encounter: 14:00 Assessment and Plan (1) Bradycardia Current Visit: Yes Status: Acute Per cardiology: -Admitted with dizziness at home. Noted to be bradycardic on admission. -ECG with SB, HR 50. -Telemetry reviewed with average HR previous 12 hours noted to be 50. -Was on atenolol at home, has been held. Has been off atenolol for 24 hours. -ECW reviewed and outpatients HRs documented in the low 60s. -Patient reports has had dizziness since admission with walking. -Recommend continue to hold atenolol. Avoid AV devin blockers. -Continue telemetry. -Will continue to monitor. -Can consider EP consult if warranted. (2) Chest pressure Current Visit: Yes Status: Acute Per cardiology: -States had some chest heaviness during dizzy episode. -Denies current chest pain/heaviness. -ECG with no acute ischemic changes. -Troponins negative x3. -Echo 04/2017 with LVEF 60-65%, mild diastolic dysfunction, mild-moderate TR, all wall segments with normal motion. -Nuclear stress 04/2017 with perfusion imaged negative for ischemia or infarct. Gated EF >70%. -Will continue to monitor. Discussion w patient/family: The assessment and plan as outlined above was discussed with the patient and/or family members who expressed understanding and agreement. All questions were answered. Thank you for involving us in the care of your patient. Please call with any questions. Discussed and reviewed with . History of Present Illness Consult date: 07/25/17 Requesting physician: Concepción Jernigan Consult reason: symptomatic bradycardia Chief complaint: dizziness History of present illness: Ms. Bassett is a 76 year old female with a relevant past medical history of HTN , hyperlipidemia, cardiomegaly, sleep apnea, leukemia. Patient presented to [facility] with complaints of dizziness. Patient states she was walking to her car when she felt like everything else around here was spinning. Patient states her had to help her back into the house and she still felt like the whole room was spinning. Patient states her called the squad. Patient reports since being in the hospital, she has not noticed the room spinning. Patient does admit to dizziness when she is up walking to the bathroom. Patient denies current chest pain or shortness of breath. Patient did report at the time of the dizziness episode, she has some chest heaviness. Patient reports increased fatigue since her shoulder surgery in April. Past Med Surg Social Fam HX - Past Medical History Attestation: Yes The following information was validated with the patient. Source: patient, old records reviewed, obtained from family Medical history: arthritis, hyperlipidemia, hypertension, other Psychiatric history: no psych history - Past Surgical History Surgical History: cataract (Bilateral), hysterectomy (Total), orthopedic, other (Left shoulder) - Social History Smoking Status: Never smoker Smokeless Tobacco Status: No Alcohol use: none Drug use: none - Family History Mother Adopted: No Race: Family Member Ethnicity: Non- Living Status: Age at : 72 Cause of : Lung cancer Hx Family Cardiac Disorders: Yes Hx Family Respiratory Disorders: No Hx Family Cancer: Yes (Sister and mother) Father Race: Family Member Ethnicity: Non- Living Status: Age at : 40 Cause of : Accident Brother Race: Family Member Ethnicity: Non- Living Status: Age at : 37 Cause of : PR Hx Family Cardiac Disorders: Yes (PR) Sister Race: Family Member Ethnicity: Non- Living Status: Age at : 68 Cause of : Leukemia Medications and Allergies Aspirin [Lo-Dose Aspirin EC] 81 mg PO DAILY 05/07/17 [History] Atenolol [Tenormin] 25 mg PO DAILY 05/07/17 [History] Atorvastatin Calcium [Lipitor] 80 mg PO DAILY 05/07/17 [History] Calcium Acetate 1,000 mg PO DAILY 05/07/17 [History] Cholecalciferol (D-3) [Vitamin D] 1,000 unit PO DAILY 05/07/17 [History] Lisinopril [Zestril] 40 mg PO DAILY 05/07/17 [History] Multivitamin [Multi-Day Vitamins] 1 each PO DAILY 05/07/17 [History] [place]-3 Fatty Acids [Fish Oil] 1,000 mg PO DAILY 05/07/17 [History] amLODIPine [Norvasc] 5 mg PO DAILY 07/24/17 [History] 3 Allergy/AdvReac Type Severity Reaction Status Date / Time iodine Allergy Severe Hives Verified 05/03/17 09:25 All Systems Review: A 10-system review of systems was performed and is negative for pertinent findings except as documented above in the HPI. - Cardiovascular Cardiovascular: as per HPI - Neurological Neurological: dizziness Physical Examination Vital Signs, Last 4 Hours Temp Pulse Resp BP Pulse Ox 07/25/17 11:10 98.4 F 53 16 141/55 97 General: Conversant, No Apparent Distress HEENT: Atraumatic, Normocephaly, Mucus Membranes Moist Neck: No JVD, Normal carotid pulses Cardiac: Reg Rate and Rhythm, Normal S1 and S2, No Murmur Lungs: Normal Breath Sounds, No Wheeze, Rales, Rhonchi Neuro: Alert and responsive, No focal deficits noted Abdomen: Soft, Non-Tender Skin: No rashes noted on visualized skin Musculoskeletal: No Chest Wall Tenderness Extremities: No Clubbing, No Cyanosis, No Edema, Normal Pulses Results 07/25/17 04:16 07/25/17 04:16 Lab Results Impressions Chest X-Ray 07/24/17 10:44 IMPRESSION: No acute cardiopulmonary process. D/ /24/2017 11:28:29 Jared Moreira MD / [facility] Interpreting Provider: Jared Moreira MD Head CT 07/24/17 10:44 IMPRESSION: No acute intracranial abnormality. Mild parenchymal atrophy and chronic small vessel ischemic changes. D/ /24/2017 12:17:26 Joan Moreira MD / [facility] Interpreting Provider: Joan Moreira MD Active Medications Acetaminophen (Tylenol) 650 mg PO Q6HR PRN PRN Reason: Mild Pain (1-3) Stop: 01/23/18 14:21 Hydrocodone Bitart/Acetaminophen (Elida 5-325 Mg) 1 tab PO Q4HR PRN PRN Reason: Moderate Pain (4-6) Stop: 01/23/18 14:21 Aspirin (Aspirin Ec) 81 mg PO DAILY [facility] Stop: 01/24/18 09:01 Last Admin: 07/25/17 08:34 Dose: 81 mg Atorvastatin Calcium (Lipitor) 80 mg PO DAILY [facility] Stop: 01/24/18 09:01 Last Admin: 07/25/17 08:34 Dose: 80 mg Docusate Sodium (Colace) 100 mg PO BID PRN PRN Reason: Constipation Stop: 01/23/18 14:21 Heparin Sodium (Porcine) (Heparin) 5,000 unit SQ Q8HCO EDOUARD Stop: 01/23/18 22:01 Last Admin: 07/25/17 06:15 Dose: 5,000 unit Lisinopril (Zestril) 40 mg PO DAILY [facility] Stop: 01/24/18 09:01 Last Admin: 07/25/17 08:36 Dose: Not Given Meclizine HCl (Antivert) 12.5 mg PO TID PRN PRN Reason: DIZZINESS Stop: 01/23/18 16:20 Multivitamins/Calcium (Thera M Plus) 1 tab PO DAILY [facility] Stop: 01/24/18 09:01 Last Admin: 07/25/17 08:34 Dose: 1 tab Naloxone HCl (Narcan) 0.4 mg IVP Q2MIN PRN PRN Reason: Opioid Reversal Stop: 01/23/18 14:21 Ondansetron HCl (Zofran) 4 mg IVP Q8HR PRN PRN Reason: Nausea And Vomiting Stop: 01/23/18 14:21 Pharmacy Profile Note (Patient Taking Own Medication) 1 each PO DAILY [facility] Stop: 01/24/18 09:01 Last Admin: 07/25/17 08:35 Dose: Not Given Polyethylene Glycol (Miralax) 17 gm PO DAILY [facility] Stop: 01/24/18 11:01 Vitamin D (Vitamin D) 1,000 unit PO DAILY [facility] Stop: 01/24/18 09:01 Last Admin: 07/25/17 08:34 Dose: 1,000 unit Laboratory Tests 07/24/17 07/24/17 07/24/17 10:56 16:41 22:41 Hgb Potassium Creatinine Troponin I 0.01 0.01 0.00 Triglycerides Cholesterol LDL Cholesterol, Calc HDL Cholesterol 07/25/17 07/25/17 04:16 04:16 Hgb 12.1 Potassium 3.8 Creatinine 0.77 Troponin I Triglycerides 131 Cholesterol 144 LDL Cholesterol, Calc 86 HDL Cholesterol 32 L - Imaging and Cardiology Chest Xray: report reviewed Stress Test: report reviewed Echo: report reviewed - EKG Interpretation EKG results cardiology: personally reviewed (ECG with sinus bradycardia, HR 50.) , other (Telemetry reviewed with average HR previous 12 hours noted to be 50, sinus bradycardia. Lowest HR noted to be 42 at 0253. PACs noted.) Consult Discharge Plan - Plan Referrals: Modesto Cabrera MD [Primary Care Provider] - <Marisol Noonan - Last Filed: 07/25/17 17:26> Date of Encounter: 07/25/17 - Attending Attestation I examined this patient and my medical decision-making was reviewed with the RELIEF SALESPERSON. I agree with the documented findings, disposition and treatment plan as described except to the extent set forth below. Ms. Bassett presents with dizziness. She tells me that she's been having symptoms every morning for about 12 weeks. Yesterday, she had a particularly bad spell which prompted her hospitalization. She was found to be bradycardic on admission with HR 50. Of note, she was started on a new blood pressure medication, norvasc a few months ago but she is unable to correlate her symptoms with the start of the medication. She otherwise describes a feeling of chest heaviness during her dizzy spell yesterday, otherwise denying any other symptoms. Vital signs were reviewed. Agree with RELIEF SALESPERSON's documented exam. Impression: 1. Dizziness: Suspect dizziness symptoms may correlate to the addition of a new antihypertensive a few months ago. Norvasc has been stopped. Also, atenolol stopped due to presenting bradycardia. Patient thinks she may be feeling better but not sure. Recommend continuing to hold atenolol and norvasc and observe overnight. Continue telemetry. 2. Chest Pressure: Had episode of chest pressure during dizzy episode but otherwise denies any further symptoms. ECG without ischemic findings and troponins are negative. Stress testing in April was negative for ischemia and EF has been normal. No further testing appears warranted at this time. Assessment and Plan Discussion w patient/family: The assessment and plan as outlined above was discussed with the patient and/or family members who expressed understanding and agreement. All questions were answered. Thank you for involving us in the care of your patient. Please call with any questions. History of Present Illness History of present illness: Ms. Bassett is a 76 year old female All Systems Review: A 10-system review of systems was performed and is negative for pertinent findings except as documented above in the HPI. Physical Examination Vital Signs, Last 4 Hours Temp Pulse Resp BP Pulse Ox 07/25/17 15:41 98.6 F 54 16 126/61 95 Results 07/25/17 04:16 07/25/17 04:16 Lab Results 07/24/17 07/24/17 07/25/17 16:41 22:41 04:16 WBC 9.0 Hgb 12.1 Hct 37.3 Plt Count 241 INR APTT Sodium Potassium Chloride Carbon Dioxide BUN Creatinine Glucose Calcium Magnesium Total Bilirubin AST ALT Alkaline Phosphatase Troponin I 0.01 0.00 07/25/17 07/25/17 04:16 04:16 WBC Hgb Hct Plt Count INR 1.1 APTT 32.5 Sodium 140 Potassium 3.8 Chloride 108 Carbon Dioxide 27 BUN 21 H Creatinine 0.77 Glucose 98 Calcium 9.0 Magnesium 1.8 Total Bilirubin 0.4 AST 23 ALT 27 Alkaline Phosphatase 76 Troponin I
--- NOTE | 2017-07-25 14:37 | Electrocardiograph Report ---
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
[2017-07-25 16:55] LABS: Hemoglobin A1C 5.3 %
--- NOTE | 2017-07-25 17:37 | Internal Med Progress Note ---
Date of Encounter: 07/25/17 Time of Encounter: 09:05 - Assessment and plan (1) Chest pressure Current Visit: Yes Status: Acute Assessment and plan: Patient currently denies chest pressure. Chest pressure was associated with her high blood pressure and dizziness. She has not had any since arrival. EKG was sinus bradycardia with a rate of 50, when necessary 173, QRS 101, QTC 443. Patient had carotid Dopplers have minimal plaque throughout bilaterally. Patient had an echocardiogram in April, prior to shoulder surgery. Echo showed normal systolic function with an LVEF of 60-65%, mild LV DD, mild to moderate TR , elevated blood pressure during the study. She also had a stress test at the same time that again showed baseline elevated blood pressure, and gaited EF 70% , perfusion imaging negative for ischemia or infarct. Continue telemetry Cardiology is on board for bradycardia and chest pressure Medications have been held at this time and we are monitoring her pulse and blood pressure Treat with nitroglycerin or morphine IV as needed (2) Bradycardia Current Visit: Yes Status: Acute Assessment and plan: Medications have been held. Blood pressure is holding steady despite holding all blood pressure medications. Average heart rate is 50. Cardiology is on board and will reevaluate in the morning after she has been off her beta heidy for 48 hours. Plan as above (3) Vertigo Current Visit: Yes Status: Acute Assessment and plan: Patient reports episodes of dizziness with the chest pressure. This is most likely symptomatic bradycardia. She has not had any of this since arrival. We will continue to monitor. She is on fall precautions. Plan as above (4) HTN (hypertension) Current Visit: Yes Status: Chronic Assessment and plan: Patient has been normotensive today despite blood pressure medications being held for symptomatic bradycardia. Continue to monitor. Qualifiers: Hypertension type: essential hypertension Qualified Code(s): I10 - Essential (primary) hypertension (5) HLD (hyperlipidemia) Current Visit: Yes Status: Chronic Assessment and plan: Lipid panel is within normal limits. Continue Lipitor at home. Qualifiers: Hyperlipidemia type: pure hypercholesterolemia Qualified Code(s): E78.00 - Pure hypercholesterolemia, unspecified; E78.0 - Pure hypercholesterolemia (6) DVT prophylaxis Current Visit: Yes Status: Acute Assessment and plan: Heparin subcutaneous. Patient has been ambulatory and up in the chair. - Time Spent With Patient less than 15 minutes - Subjective Interval history: Patient was seen and assessed at 9:05 AM. She reports that she is no longer having any chest pressure. She reports having episodes of hypertension while she was dizzy, though she did not check her pulse. She denies any headache, blurred vision, chest pain, she does report nausea and vomiting 1 with her dizziness although she is having now. Patient is more concerned with not having a bowel movement for the last 3 days. I ordered MiraLAX and stool softener. - Constitutional Vitals: Temp Pulse Resp BP Pulse Ox 98.6 F 54 16 126/61 95 07/25/17 15:41 07/25/17 15:41 07/25/17 15:41 07/25/17 15:41 07/25/17 15:41 General appearance: Present: cooperative, A&O X 3, pleasant, no acute distress, obese, answers questions appropriately - Head Head exam: Present: atraumatic, normal inspection, normocephalic - Eye Eye exam: Present: normal appearance, conjuntiva pink, sclera anicteric - Neck Neck exam general surgery: Present: supple, trachea midline. Absent: lymphadenopathy, tenderness - Respiratory Respiratory exam: Present: CTAB. Absent: accessory muscle use, decreased breath sounds, rales, respiratory distress, rhonchi, wheezes - Cardiovascular Cardiovascular exam: Present: bradycardia, RRR, +S1, +S2. Absent: diastolic murmur, gallop, rubs, systolic murmur - GI/Abdominal GI/Abdominal exam: Present: normal bowel sounds, soft, no peritoneal signs. Absent: distended, hepatomegaly, tenderness - Extremities Exam Extremities exam: Present: normal capillary refill, normal inspection, warm, radial pulses palpable and symmetrical. Absent: calf tenderness, cyanotic, pedal edema, tenderness - Neurological Exam Neurological exam: Present: alert, oriented X3, no focal deficits. Absent: facial droop, speech deficit - Skin Skin exam: Present: dry, intact, normal color, warm. Absent: rash Internal Medicine: Result - Labs CBC & Chem 7: 07/25/17 04:16 07/25/17 04:16 Labs: Short CBC 07/25/17 Range/Units 04:16 WBC 9.0 (4.3-11.1) K/mcL Hgb 12.1 (11.5-15.4) g/dL Hct 37.3 (35.3-44.9) % Plt Count 241 (140-400) K/mcL Neutrophils # 3.9 (1.6-8.9) K/mcL BMP 07/25/17 04:16 Sodium 140 Potassium 3.8 Chloride 108 Carbon Dioxide 27 BUN 21 H Creatinine 0.77 Glucose 98 Calcium 9.0 Cardiac Enzymes 07/24/17 Range/Units 22:41 Troponin I 0.00 (0-0.03) ng/mL Liver Function 07/25/17 Range/Units 04:16 Total Bilirubin 0.4 (0.2-1.2) mg/dL AST 23 (5-34) Units/L ALT 27 (0-55) Units/L Alkaline Phosphatase 76 (38-126) Units/L Albumin 3.3 L (3.5-5.0) g/dL - ABG Interpretation ABG results: PT/INR, D-dimer PT 11.8 Seconds (9.4-12.1) 07/25/17 04:16 Consult Discharge Plan - Plan Referrals: Modesto Cabrera MD [Primary Care Provider] -
[2017-07-26] MEDS: *HR* Heparin 5,000 UNIT/ML VIAL SQ SCH (05:04)
[2017-07-26 05:36] LABS: Basophils % 0.4 %; Eosinophils # 0.4 K/mcL (0.0-0.6); Hematocrit 36.4 % (35.3-44.9); Hemoglobin 12.3 g/dL (11.5-15.4); Immature Granulocytes % 0.2 % (0-4); Lymphocytes # 4.4 K/mcL (0.6-4.6); Lymphocytes % 45.9 %; Mean Corpuscular HGB Conc 33.8 g/dL (31.6-35.5); Mean Corpuscular Hemoglobin 31.6 pg (28.0-33.3); Mean Corpuscular Volume 93.6 fL (83.0-100.0); Mean Platelet Volume 10.3 fL (9.4-12.4); Monocytes # 0.9 K/mcL (0.0-1.3); Neutrophils # 3.9 K/mcL (1.6-8.9); Platelet Count 239 K/mcL (140-400); Red Blood Count 3.89 M/mcL (3.82-4.97); Red Cell Distribution Width 12.7 % (11.5-14.5); Segmented Neutrophils % 40.5 %
[2017-07-26 06:00] LABS: BUN/Creatinine Ratio 27 (6-26); Blood Urea Nitrogen 20 mg/dL (7-20); Calcium 9.4 mg/dL (8.6-10.8); Carbon Dioxide 27 mEq/L (19-29); Chloride 104 mEq/L (98-109); Glucose 96 mg/dL (70-99); Osmolality,Calculated 290 (280-300); Sodium 139 mEq/L (136-145); eGFR For African Americans > 60 (> 60); eGFR For Non-African Americans > 60 (> 60)
[2017-07-26] MEDS: Cholecalciferol (D-3) 1,000 UNIT TABLET PO SCH (08:41)
[2017-07-26] MEDS: CALCIUM ACETATE PO SCH (08:41)
[2017-07-26] MEDS: Aspirin Enteric Coated 81 MG Tablet PO SCH (08:41)
[2017-07-26] MEDS: Multivit/Ca/Min/Fe/FA 1 TAB TABLET PO SCH (08:41)
[2017-07-26 11:48] VITALS: BP 165/78
--- NOTE | 2017-07-26 11:55 | Discharge Summary ---
Date of Encounter: 07/26/17 Time of Encounter: 09:30 - Discharge Diagnosis (1) Chest pressure Priority: Primary Status: Acute Comments: Pt denies today. She has been seen by cardiology. Pt remains bradycardic, but is no longer symptomatic. Cardiology has signed off and will follow up with pt in the office. (2) Bradycardia Priority: Secondary Status: Acute Comments: BB has been stopped. Pt remains bradycardic, however, is no longer having chest pressure of dizziness. Pt will follow up with cardiology in the office and stop BB. (3) Vertigo Priority: Secondary Status: Resolved Comments: Pt denies. (4) HTN (hypertension) Priority: Secondary Status: Chronic Comments: Chronic. BB has been held. Continue to monitor BP on discharge and report to PCP. Will need to follow up for continued monitoring and any needed medication changes. Qualifiers: Hypertension type: essential hypertension Qualified Code(s): I10 - Essential (primary) hypertension (5) HLD (hyperlipidemia) Priority: Secondary Status: Chronic Comments: Continue Lipitor. Lipid panel WNL. Qualifiers: Hyperlipidemia type: pure hypercholesterolemia Qualified Code(s): E78.00 - Pure hypercholesterolemia, unspecified; E78.0 - Pure hypercholesterolemia (6) DVT prophylaxis Priority: Secondary Status: Acute Comments: Heparin SQ - Discharge Medications Home Medications: Aspirin [Lo-Dose Aspirin EC] 81 mg PO DAILY 05/07/17 [History] Atorvastatin Calcium [Lipitor] 80 mg PO DAILY 05/07/17 [History] Calcium Acetate 1,000 mg PO DAILY 05/07/17 [History] Cholecalciferol (D-3) [Vitamin D] 1,000 unit PO DAILY 05/07/17 [History] Lisinopril [Zestril] 40 mg PO DAILY 05/07/17 [History] Multivitamin [Multi-Day Vitamins] 1 each PO DAILY 05/07/17 [History] [place]-3 Fatty Acids [Fish Oil] 1,000 mg PO DAILY 05/07/17 [History] amLODIPine [Norvasc] 5 mg PO DAILY 07/24/17 [History] Allergies/Adverse Reactions: 3 Allergy/AdvReac Type Severity Reaction Status Date / Time iodine Allergy Severe Hives Verified 05/03/17 09:25 Procedures/tests Complete & Pending: Procedures Performed prior 72 hours Category Date Time Status EV carotid duplex imaging BI Routine Y 07/24/17 16:01 Completed Date of admission: 07/24/17 13:34 Primary care physician: Modesto Cabrera MD Consults: 07/24/17 14:22 Consult to Physical Therapy [CONS] Routine Comment: Evaluate, develop and implement POC Reason for Consult: Patient has 2 week hx of dizziness and pre-syncope. Please assess for stability, strength, ambulation, and assistive needs for post-discharge planning. 07/24/17 14:23 Consult to Occupational Therapy [CONS] Routine Comment: Evaluate, develop and implement POC Reason for Consult: Patient has 2 week hx of dizziness and pre-syncope. Please assess for stability, strength, ambulation, and assistive needs for post-discharge planning. Discharging clinician: Concepción Jernigan Anticipated date of discharge: 07/26/17 - Patient Status Disposition: Home, Self-Care Condition: Good Functional capacity at discharge: independent ambulation Overall status at discharge: patient is back to baseline - Discharge Instructions Follow Up With: Modesto Cabrera MD [Primary Care Provider] - Additional Instructions: Follow-through primary care provider in the next 7-10 days for a follow-up visit. You will need to closely monitor blood pressure, keep records, and report these to your primary care provider Medication adjustments will be made by primary care provider. Return to the emergency area of the proximal concerns, or if symptoms return or worsen. Resume her normal home medications, with the exception of metoprolol. Resume activities as tolerated. Change positions slowly and do not stand and ambulate if you are dizzy - Diet and Activity Activity: increase activity as tolerated, resume usual activities as tolerated Diet: advance to your usual diet Hospital course: Ms. Bassett is a 76 year old female with past medical history of coronary artery disease, CHRIS with CPAP use, left rotator cuff surgery, CLL, hyperlipidemia, hypertension, lipoma of left shoulder. She reported to the emergency department with intermittent chest pressure with and without dizziness for the past couple weeks. Patient reports it has been occurring intermittently but became more frequent and worse the day before admission. She states that the dizziness and chest pressure became worse with exertion. Patient had recent left shoulder surgery in April, prior to the surgery she had stress, echo, was found to be hypertensive and placed on Norvasc. She denies nausea, fever, chills, vomiting, headache, vision changes, shortness of breath, palpitations, diarrhea, constipation, presyncope, or syncope, or abdominal pain. She has not had any chest pressure or dizziness since arrival. CT head in the emergency department showed no acute intracranial abnormality and normal chronic small vessel ischemic changes. Chest x-ray was negative. EKG was sinus bradycardia with borderline left axis deviation and minimal ST depression compared to EKG dated 05/09/2017. Patient had carotid Dopplers that showed minimal plaque throughout. Echocardiogram done prior to surgery showed normal LVEF of 60-65% with normal LV systolic function, mild LVDD, mild to moderate TR, and hypertension during the test. At the same time, patient had a negative stress test with a gaited EF of greater than 70%. Patient has been evaluated by cardiology. She has been removed from her beta heidy due to symptomatic bradycardia. Rate still remains less than 60, however she is no longer symptomatic and denies any chest pressure or dizziness. Cardiology has signed off and will follow up in the office since ischemia workup was negative. Vital signs are stable and within normal limits. A1c is 5.3, lipid panel is within normal limits. Vital signs are stable and within normal limits other than bradycardia which is mentioned above. Patient is stable and ready for discharge. Time spent discussing smoking cessation with patient: 3 to 10 minutes - Time Spent with Patient Total time spent providing and/or coordinating discharge services: - Constitutional Vitals: Temp Pulse Resp BP Pulse Ox 98.5 F 61 16 165/78 93 07/26/17 11:47 07/26/17 11:47 07/26/17 11:47 07/26/17 11:47 07/26/17 11:47 General appearance: Present: cooperative, A&O X 3, pleasant, no acute distress, obese, answers questions appropriately - Head Head exam: Present: atraumatic, normal inspection, normocephalic - Eye Eye exam: Present: normal appearance, conjuntiva pink, sclera anicteric - Neck Neck exam general surgery: Present: supple, trachea midline. Absent: lymphadenopathy, tenderness - Respiratory Respiratory exam: Present: CTAB. Absent: accessory muscle use, decreased breath sounds, rales, respiratory distress, rhonchi, wheezes - Cardiovascular Cardiovascular exam: Present: RRR, +S1, +S2. Absent: diastolic murmur, gallop, rubs, systolic murmur - GI/Abdominal GI/Abdominal exam: Present: normal bowel sounds, soft, no peritoneal signs. Absent: distended, hepatomegaly, tenderness - Extremities Exam Extremities exam: Present: normal capillary refill, warm, radial pulses palpable and symmetrical. Absent: calf tenderness, cyanotic, mottling, pedal edema - Neurological Exam Neurological exam: Present: alert, oriented X3, no focal deficits. Absent: facial droop, speech deficit - Skin Skin exam: Present: dry, intact, normal color, warm. Absent: rash
[2017-07-26] MEDS: Lisinopril 20 MG TABLET PO SCH (12:05)
--- NOTE | 2017-07-26 12:09 | Cardiology Progress Note ---
Date of Encounter: 07/26/17 Time of Encounter: 11:00 Assessment and Plan (1) Bradycardia Current Visit: Yes Status: Acute Per cardiology: -Admitted with dizziness at home. Noted to be bradycardic on admission. -ECG with SB, HR 50. -Telemetry reviewed with average HR previous 12 hours noted to be 54. -Was on atenolol at home, has been held. Has been off atenolol for 48 hours. -ECW reviewed and outpatients HRs documented in the low 60s. -Patient denies dizziness overnight and states she has been up walking to bathroom without dizziness. -Recommend continue to hold atenolol. Avoid AV devin blockers. -Patient will walk in hallways, if does not have dizziness, cardiology will sign off and will follow in outpatient setting. FOllow up set. (2) Chest pressure Current Visit: Yes Status: Acute Per cardiology: -States had some chest heaviness during dizzy episode. -Denies current chest pain/heaviness. Denies pain/pressure overnight. -ECG with no acute ischemic changes. -Troponins negative x3. -Echo 04/2017 with LVEF 60-65%, mild diastolic dysfunction, mild-moderate TR, all wall segments with normal motion. -Nuclear stress 04/2017 with perfusion imaged negative for ischemia or infarct. Gated EF >70%. -No further cardiac work up needed at this time. Discussion w patient/family: The assessment and plan as outlined above was discussed with the patient and/or family members who expressed understanding and agreement. All questions were answered. Thank you for involving us in the care of your patient. Please call with any questions. Discussed and reviewed with Dr.John William. Subjective Principal diagnosis: bradycardia Interval history: Patient denies dizziness overnight, Patient reports she has walked to the bathroom today without dizziness. Objective Vital Signs, Last 4 Hours Temp Pulse Resp BP Pulse Ox 07/26/17 11:47 98.5 F 61 16 165/78 93 General: Conversant, No Apparent Distress HEENT: Atraumatic, Normocephaly, Mucus Membranes Moist Neck: No JVD, Normal carotid pulses Cardiac: Reg Rate and Rhythm, Normal S1 and S2, No Murmur Lungs: Normal Breath Sounds, No Wheeze, Rales, Rhonchi Neuro: Alert and responsive, No focal deficits noted Abdomen: Soft, Non-Tender Skin: No rashes noted on visualized skin Musculoskeletal: No Chest Wall Tenderness Extremities: No Clubbing, No Cyanosis, No Edema, Normal Pulses Results 07/26/17 04:04 07/26/17 04:04 Lab Results Active Medications Acetaminophen (Tylenol) 650 mg PO Q6HR PRN PRN Reason: Mild Pain (1-3) Stop: 01/23/18 14:21 Hydrocodone Bitart/Acetaminophen (Partridge 5-325 Mg) 1 tab PO Q4HR PRN PRN Reason: Moderate Pain (4-6) Stop: 01/23/18 14:21 Aspirin (Aspirin Ec) 81 mg PO DAILY [facility] Stop: 01/24/18 09:01 Last Admin: 07/26/17 08:41 Dose: 81 mg Atorvastatin Calcium (Lipitor) 80 mg PO DAILY [facility] Stop: 01/24/18 09:01 Last Admin: 07/26/17 08:41 Dose: 80 mg Docusate Sodium (Colace) 100 mg PO BID PRN PRN Reason: Constipation Stop: 01/23/18 14:21 Heparin Sodium (Porcine) (Heparin) 5,000 unit SQ Q8HCO [facility] Stop: 01/23/18 22:01 Last Admin: 07/26/17 05:04 Dose: 5,000 unit Lisinopril (Zestril) 40 mg PO DAILY [facility] Stop: 01/24/18 09:01 Last Admin: 07/26/17 12:05 Dose: 40 mg Meclizine HCl (Antivert) 12.5 mg PO TID PRN PRN Reason: DIZZINESS Stop: 01/23/18 16:20 Multivitamins/Calcium (Thera M Plus) 1 tab PO DAILY [facility] Stop: 01/24/18 09:01 Last Admin: 07/26/17 08:41 Dose: 1 tab Naloxone HCl (Narcan) 0.4 mg IVP Q2MIN PRN PRN Reason: Opioid Reversal Stop: 01/23/18 14:21 Ondansetron HCl (Zofran) 4 mg IVP Q8HR PRN PRN Reason: Nausea And Vomiting Stop: 01/23/18 14:21 Pharmacy Profile Note (Patient Taking Own Medication) 1 each PO DAILY [facility] Stop: 01/24/18 09:01 Last Admin: 07/26/17 08:41 Dose: Not Given Polyethylene Glycol (Miralax) 17 gm PO DAILY [facility] Stop: 01/24/18 11:01 Last Admin: 07/26/17 08:41 Dose: 17 gm Vitamin D (Vitamin D) 1,000 unit PO DAILY [facility] Stop: 01/24/18 09:01 Last Admin: 07/26/17 08:41 Dose: 1,000 unit Laboratory Tests 07/26/17 07/26/17 04:04 04:04 Hgb 12.3 Creatinine 0.75 - Imaging and Cardiology Chest Xray: report reviewed Stress Test: report reviewed Echo: report reviewed - EKG Interpretation EKG results cardiology: other (Telemetry reviewed with average HR previous 12 hours noted to be 54, sinus bradycardia. PVCs and PACs noted.) Consult Discharge Plan - Plan Referrals: Modesto Cabrera MD [Primary Care Provider] -
== END 2017-07-26 14:14 | disposition home or self-care (01) ==
LOC: EMEROO 10:37 → 3BNU 10:37
PROVIDERS: ADMIT Internal Medicine; ATTEND Registered Nurse

== ENCOUNTER 2020-02-26 16:02 | Observation (INO) ==
[2020-02-26 16:29] LABS: Hematocrit 37.6 % (35.3-44.9); Hemoglobin 12.6 g/dL (11.5-15.4); Mean Corpuscular HGB Conc 33.5 g/dL (31.6-35.5); Mean Corpuscular Hemoglobin 30.8 pg (28.0-33.3); Mean Corpuscular Volume 91.9 fL (83.0-100.0); Mean Platelet Volume 9.1 fL (9.4-12.4); Platelet Count 215 K/mcL (140-400); Red Blood Count 4.09 M/mcL (3.82-4.97); Red Cell Distribution Width 12.6 % (11.5-14.5); White Blood Count 10.1 K/mcL (4.3-11.1)
[2020-02-26 16:35] LABS: Prothrombin Time 11.9 Seconds (9.4-12.1)
[2020-02-26 16:37] LABS: Activated Partial Thrombo Time 33.4 Seconds (26.0-36.0)
[2020-02-26 16:45] LABS: BUN/Creatinine Ratio 22 (6-26); Blood Urea Nitrogen 16 mg/dL (8-23); Carbon Dioxide 26 mEq/L (23-29); Chloride 100 mEq/L (98-107); Glucose 86 mg/dL (70-105); Osmolality,Calculated 274 (280-300); Potassium 3.7 mEq/L (3.5-5.1); Sodium 132 mEq/L (136-145); eGFR For African Americans > 60 (> 60); eGFR For Non-African Americans > 60 (> 60)
[2020-02-26 16:46] LABS: Troponin I < 0.03 ng/mL (< 0.04)
[2020-02-26] MEDS ORDERED: Naloxone 0.4 MG/ML INJ IVP PRN (17:24)
[2020-02-26 18:03] LABS: Bilirubin,Urine Negative (Negative); Blood,Urine Negative (Negative); Clarity,Urine Clear (Clear); Color,Urine Yellow (Yellow); Glucose,Urine (UA) Normal (Normal); Ketones,Urine Negative (Negative); Leukocyte Esterase,Urine Negative (Negative); Nitrite,Urine Negative (Negative); PH,Urine 6.5 pH Units (5.0-8.0); Protein,Urine Negative (Neg-Trace); Specific Gravity,Urine 1.017 (1.010-1.025); Urobilinogen,Urine Normal (Normal)
[2020-02-26] MEDS: *HR* Heparin 5,000 UNIT/ML VIAL SQ SCH (20:12)
[2020-02-26] MEDS: Gabapentin 300 MG CAPSULE PO SCH (20:53)
[2020-02-27 01:23] LABS: Basophils % 0.2 %; Eosinophils # 0.1 K/mcL (0.0-0.6); Eosinophils % 1.4 %; Hematocrit 34.6 % (35.3-44.9); Hemoglobin 11.6 g/dL (11.5-15.4); Immature Granulocytes % 0.3 % (0-4); Lymphocytes # 2.4 K/mcL (0.6-4.6); Lymphocytes % 26.6 %; Mean Corpuscular HGB Conc 33.5 g/dL (31.6-35.5); Mean Corpuscular Hemoglobin 31.3 pg (28.0-33.3); Mean Corpuscular Volume 93.3 fL (83.0-100.0); Mean Platelet Volume 9.3 fL (9.4-12.4); Monocytes # 0.8 K/mcL (0.0-1.3); Monocytes % 9.2 %; Neutrophils # 5.6 K/mcL (1.6-8.9); Platelet Count 193 K/mcL (140-400); Red Blood Count 3.71 M/mcL (3.82-4.97); Red Cell Distribution Width 12.5 % (11.5-14.5); Segmented Neutrophils % 62.3 %
[2020-02-27 01:43] LABS: BUN/Creatinine Ratio 18 (6-26); Blood Urea Nitrogen 14 mg/dL (8-23); Calcium 8.7 mg/dL (8.6-10.3); Carbon Dioxide 29 mEq/L (23-29); Chloride 103 mEq/L (98-107); Glucose 131 mg/dL (70-105); Osmolality,Calculated 286 (280-300); Potassium 3.6 mEq/L (3.5-5.1); Sodium 137 mEq/L (136-145); eGFR For African Americans > 60 (> 60); eGFR For Non-African Americans > 60 (> 60)
[2020-02-27] MEDS: *HR* Heparin 5,000 UNIT/ML VIAL SQ SCH (05:04)
[2020-02-27] MEDS ORDERED: Aspirin Enteric Coated 81 MG Tablet PO SCH (09:00)
[2020-02-27] MEDS ORDERED: NON-FORMULARY MEDICATION 1 EACH EACH (Omega-3/Dha/Epa/Fish Oil [Fish Oil 1,000 Mg Softgel] PO SCH (09:00)
[2020-02-27] MEDS ORDERED: Cholecalciferol (D-3) 1,000 UNIT (25MCG) TABLET PO SCH (09:00)
[2020-02-27] MEDS ORDERED: Ascorbic Acid 500 MG TABLET PO SCH (09:00)
[2020-02-27] MEDS ORDERED: Multivit/Ca/Min/Fe/FA 1 TAB TABLET PO SCH (09:00)
[2020-02-27] MEDS: Gabapentin 300 MG CAPSULE PO SCH (09:47)
[2020-02-27 11:25] VITALS: BP 115/65
== END 2020-02-27 14:52 | disposition home health service (06) ==
LOC: EMEROOARM 16:02 → 3BNU 16:02
PROVIDERS: ADMIT Internal Medicine; ATTEND Internal Medicine